=== PATIENT | female | born 1940 | race Caucasian/White ===

== ENCOUNTER 2022-09-15 13:02 | Inpatient (IN) ==
[2022-09-15] MEDS ORDERED: Iopamidol - 370 500 ML MLS IVP ONE (13:21)
[2022-09-15 13:28] LABS: Basophils # 0.1 K/mcL (0.0-0.2); Basophils % 1.2 %; Eosinophils # 0.4 K/mcL (0.0-0.6); Eosinophils % 4.9 %; Hematocrit 41.5 % (35.3-44.9); Hemoglobin 13.6 g/dL (11.5-15.4); Immature Granulocytes % 0.5 % (0-4); Lymphocytes # 1.4 K/mcL (0.6-4.6); Lymphocytes % 17.6 %; Mean Corpuscular HGB Conc 32.8 g/dL (31.6-35.5); Mean Corpuscular Hemoglobin 29.6 pg (28.0-33.3); Mean Corpuscular Volume 90.4 fL (83.0-100.0); Mean Platelet Volume 9.5 fL (9.4-12.4); Monocytes # 0.6 K/mcL (0.0-1.3); Monocytes % 7.1 %; Neutrophils # 5.6 K/mcL (1.6-8.9); Platelet Count 366 K/mcL (140-400); Red Blood Count 4.59 M/mcL (3.82-4.97); Red Cell Distribution Width 13.6 % (11.5-14.5); Segmented Neutrophils % 68.7 %; White Blood Count 8.1 K/mcL (4.3-11.1)
[2022-09-15 13:47] LABS: Calcium 8.9 mg/dL (8.6-10.3); Troponin I 0.03 ng/mL (< 0.04)
[2022-09-15] MEDS ORDERED: Naloxone 0.4 MG/ML INJ IVP PRN (16:24)
[2022-09-15] MEDS ORDERED: Ondansetron ODT 4 MG TAB.RAPDIS SL PRN (16:24)
[2022-09-15 18:04] LABS: Bacteria,Urine Few per hpf (None-Few); Bilirubin,Urine Negative (Negative); Blood,Urine Trace (Negative); Clarity,Urine Clear (Clear); Color,Urine Light-Yellow (Yellow); Glucose,Urine (UA) Normal (Normal); Ketones,Urine Negative (Negative); Leukocyte Esterase,Urine Large (Negative); Mucus,Urine Few per lpf (None-Few); Nitrite,Urine Negative (Negative); PH,Urine 6.5 pH Units (5.0-8.0); Protein,Urine 30 mg/dL (Neg-Trace); Specific Gravity,Urine > 1.030 (1.010-1.025); Squamous Epithelial Cell,Urine Many per hpf (None-Few); Transitional Epi Cells,Urine Few per hpf (None-Few); Urobilinogen,Urine Normal (Normal); WBC,Urine 50-100 per hpf (0-3)
[2022-09-16 03:44] LABS: Bacteria,Urine Few per hpf (None-Few); Bilirubin,Urine Negative (Negative); Blood,Urine Negative (Negative); Clarity,Urine Clear (Clear); Color,Urine Yellow (Yellow); Glucose,Urine (UA) Normal (Normal); Ketones,Urine Negative (Negative); Leukocyte Esterase,Urine Trace (Negative); Mucus,Urine Few per lpf (None-Few); Nitrite,Urine Negative (Negative); Protein,Urine 30 mg/dL (Neg-Trace); Specific Gravity,Urine > 1.030 (1.010-1.025); Squamous Epithelial Cell,Urine Moderate per hpf (None-Few); Urobilinogen,Urine Normal (Normal); WBC,Urine 0-3 per hpf (0-3)
[2022-09-16 06:21] LABS: Hematocrit 37.4 % (35.3-44.9); Hemoglobin 12.3 g/dL (11.5-15.4); Mean Corpuscular HGB Conc 32.9 g/dL (31.6-35.5); Mean Corpuscular Hemoglobin 29.4 pg (28.0-33.3); Mean Corpuscular Volume 89.5 fL (83.0-100.0); Mean Platelet Volume 9.5 fL (9.4-12.4); Platelet Count 338 K/mcL (140-400); Red Blood Count 4.18 M/mcL (3.82-4.97); Red Cell Distribution Width 13.7 % (11.5-14.5); White Blood Count 8.2 K/mcL (4.3-11.1)
[2022-09-16 06:29] LABS: INR 1.1; Prothrombin Time 11.9 Seconds (9.4-12.1)
[2022-09-16 06:43] LABS: Alanine Aminotransferase 17 Units/L (7-52); Albumin 3.2 g/dL (3.5-5.7); Albumin/Globulin Ratio 1.1 (1.1-2.2); Alkaline Phosphatase 66 Units/L (34-104); Aspartate Amino Transferase 21 Units/L (13-39); BUN/Creatinine Ratio 24 (6-26); Bilirubin,Total 0.6 mg/dL (0.3-1.0); Blood Urea Nitrogen 20 mg/dL (8-23); Calcium 8.5 mg/dL (8.6-10.3); Carbon Dioxide 27 mEq/L (23-29); Chloride 103 mEq/L (98-107); Chol/HDL Ratio 3.4 (0-4.9); Cholesterol 194 mg/dL (< 200); Globulin 2.9 g/dL (2.4-3.5); Glucose 105 mg/dL (70-105); HDL Cholesterol 57 mg/dL (40-59); LDL Cholesterol,Calculated 117 mg/dL (< 100); Osmolality,Calculated 287 (280-300); Potassium 3.6 mEq/L (3.5-5.1); Sodium 137 mEq/L (136-145); Total Protein 6.1 g/dL (6.4-8.9); Triglycerides 98 mg/dL (< 150); Troponin I < 0.03 ng/mL (< 0.04)
[2022-09-16 06:47] LABS: Estimated Average Glucose 100 mg/dl; Hemoglobin A1C 5.1 %
[2022-09-16] MEDS: Aspirin Enteric Coated 81 MG Tablet PO SCH (07:50)
[2022-09-16] MEDS ORDERED: *HR* HYDROcodone/Acet 5/325 mg TABLET PO ONE (11:32)
[2022-09-17] MEDS ORDERED: *HR* Labetalol 20 MG/4 ML SYRINGE IVP ONE ×2 (03:20→03:21)
[2022-09-17] MEDS: Aspirin Enteric Coated 81 MG Tablet PO SCH (07:47)
[2022-09-17] MEDS ORDERED: Acetaminophen 325 MG TABLET PO PRN (08:09)
[2022-09-17] MEDS ORDERED: Ketorolac 30 MG/ML VIAL IVP ONE (08:11)
[2022-09-17] MEDS: lisinopriL 20 MG TABLET PO SCH (09:25)
[2022-09-17] MEDS: Pantoprazole 40 MG VIAL IVP SCH (09:27)
[2022-09-17] MEDS ORDERED: Iopamidol - 370 500 ML MLS IVP ONE (10:50)
[2022-09-18 03:30] LABS: Folate 10.4 ng/mL (3.0-16.0)
[2022-09-18] MEDS: Pantoprazole 40 MG VIAL IVP SCH (08:36)
[2022-09-18] MEDS: Aspirin Enteric Coated 81 MG Tablet PO SCH (08:37)
[2022-09-18] MEDS: lisinopriL 20 MG TABLET PO SCH (08:37)
[2022-09-18] MEDS ORDERED: lisinopriL 20 MG TABLET PO ONE (11:34)
[2022-09-18 14:11] LABS: Influenza A PCR Negative (Negative); Influenza B PCR Negative (Negative); Resp. Syncytial Virus PCR Negative (Negative); SARS-CoV-2 by PCR (In House) Negative (Negative)
[2022-09-19 06:29] VITALS: O2SAT 96
[2022-09-19] MEDS: Aspirin Enteric Coated 81 MG Tablet PO SCH (08:08)
[2022-09-19] MEDS: Pantoprazole 40 MG VIAL IVP SCH (08:09)
[2022-09-19] MEDS ORDERED: lisinopriL 20 MG TABLET PO SCH (09:00)
[2022-09-19 10:13] VITALS: BP 133/89; PULSE 70; TEMP 97.7
== END 2022-09-19 10:51 | DRG 69 ==
LOC: EMEROOARM 13:02 → 3BNU 13:02 → SUATTDRO 15:47 → 3BNU 16:50
PROVIDERS: ADMIT Internal Medicine; ATTEND Internal Medicine